=== PATIENT | female | born 1990 | race Native Hawaiian/Other Pacific Islander ===

== ENCOUNTER 2023-12-20 13:50 | Emergency (ER) | payer OTHER, SELFPAY ==
[2023-12-20 13:54] VITALS: BP 125/86; PULSE 92; RESP 18; TEMP 36.9; O2SAT 99; BMI 33.2
--- NOTE | 2023-12-20 13:58 | ED.FEMALEGU ---
HPI - Female Genitourinary General Time Seen by Provider: 13:58 Date Seen: 12/20/23 Chief complaint: Urogenital Problems, Female Stated complaint: Possible yeast infection Time Seen by Provider: 12/20/23 13:52 Source: patient and RN notes reviewed Mode of arrival: ambulatory Limitations: no limitations History of Present Illness HPI Narrative: Gaby is a very pleasant 33-year-old female coming in with concern of vaginal discharge. She has been having or Shaila vaginal discharge. Notes her last menstrual cycle was abnormal, only had her menses 1 day. She has been having pelvic cramping. Denies any urinary symptoms. No fevers or chills. She has been having 0 Shaila vaginal discharge which she thinks may be consistent with vaginitis, she has had vaginitis before. She is with a new sexual partner for the last couple months, they have been using condoms. She is on no other control. She has a history of chlamydia about 5 years ago. She is not aware of this partner having any STIs. She has noted no rashes or lesions in the perineum. Sexual activity: Yes and New Sexual Partners Related Data Previous Rx's Medication Instructions Recorded metronidazole 0.75 % (37.5 mg/5 1 appful vaginal BID 5 days #70 12/20/23 gram) vaginal gel grams Allergies Allergy/AdvReac Type Severity Reaction Status Date / Time No Known Drug Allergies Allergy Verified 12/20/23 13:55 Review of Systems Narrative: As per HPI. PFS PFS Social History Smoking Status: Never smoker Do you use any of these nicotine containing products: None Second hand tobacco smoke exposure: No How often do you have a drink containing alcohol: never AUDIT-C Alcohol total score: 0 Non-prescribed substance use: denies use service: No Exam Const: Vital Signs, click to edit/add: Vital Signs - 24 hr 12/20/23 13:54 Temperature 98.5 F Pulse Rate [Right Pulse Oximeter] 92 Respiratory Rate 18 Blood Pressure [Ri ght Upper Arm] 125/86 Pulse Oximetry 99 Oxygen Delivery Me thod Room Air This very pleasant 33-year-old female seen in exam room 7. She is ambulatory into the ED of her own accord. Abdomen is soft, no rebound or guarding, no organomegaly. She has no inguinal adenopathy. External genitalia normal, see no rashes or lesions. Speculum exam done, vaginal mucosa appears normal with a scant amount of slight blood tinged to yellowish discharge, do not appreciate odor but do have a mask on. Cervix looks a bit friable, some mild pooling of thinner yellowish to slightly bloody fluid in the posterior fornix. Endocervical specimen obtained for GC and chlamydia, vaginitis panel. Bimanual exam reveals no cervical motion tenderness, nontender nonenlarged uterus, no adnexal fullness or tenderness. Documenting provider has reviewed patient's vital signs: yes Course Course ED Course: Patient is in agreement with the swabs collected during her exam. Will also confirm status with urine test. Clinically, exam is benign, do not think that she has any physical stigmata suggestive of PID. Would not recommend any imaging at this time given benign exam other than the vaginal discharge. Do need to confirm her status, await results for the vaginitis panel. Reevaluation(s) Time of Reevaluation #1: 14:48 Reevaluation #1: Have reviewed negative test with patient. She will discharge to home at this time and await a phone call from us once other test results are back. It will likely be await until those test results come back, she would prefer to go home and await a phone call. She understands that we may have to send medicines into the pharmacy, may not be ready until tomorrow if it is later. She is fine with that. Time of Reevaluation #2: 17:50 Reevaluation #2: Called and left a message on patient's cellphone, she did not answer. Have asked her to contact us back here in the ER. Will send in treatment for bacterial vaginosis. 5:53 p.m.: Patient did call back, did explain the bacterial vaginosis and treatment. Questions were answered. Patient was given verbal discharge. She is aware that the prescription was sent to her pharmacy, she will likely have to start it tomorrow which will be fine. Have advised abstinence through this treatment. Vital Signs Vital signs: Initial Vital Signs Temperature 98.5 F 12/20/23 13:54 Temperature Source Temporal Artery Scan 12/20/23 13:54 Pulse Rate 92 12/20/23 13:54 Respiratory Rate 18 12/20/23 13:54 Blood Pressure 125/86 12/20/23 13:54 Blood Pressure Mean 99 12/20/23 13:54 Blood Pressure Position Sitting 12/20/23 13:54 Pulse Oximetry 99 12/20/23 13:54 Oxygen Delivery Method Room Air 12/20/23 13:54 Vital Signs Temperature 98.5 F 12/20/23 13:54 Pulse Rate 92 12/20/23 13:54 Respiratory Rate 18 12/20/23 13:54 Blood Pressure 125/86 12/20/23 13:54 Pulse Oximetry 99 12/20/23 13:54 Oxygen Delivery Method Room Air 12/20/23 13:54 Temperature 98.5 F 12/20/23 13:54 Pulse Rate 92 12/20/23 13:54 Respiratory Rate 18 12/20/23 13:54 Blood Pressure 125/86 12/20/23 13:54 Pulse Oximetry 99 12/20/23 13:54 Oxygen Delivery Method Room Air 12/20/23 13:54 MDM - Female Genitourinary Lab Data Attestation: I reviewed the patient's lab results. Labs: Lab Results 12/20/23 12/20/23 Range/Units 14:18 Unknown Urine HCG, Qual Negative (Negative) Vaginal Bacterial Vaginosis DETECTED A (No Detected) Vaginal Kenna species Not Detected (No Detected) Vag C. glabrata/krusei Not Detected (No Detected) Vag T. vaginalis Not Detected (No Detected) C.trachomatis Ampl DNA Not Detected (No Detected) N.gonorrhoeae Ampl DNA Not Detected (No Detected) Discharge Plan Discharge Clinical Impression: Bacterial vaginosis Patient Disposition: Home, Self-Care Condition: Stable Prescriptions: New metronidazole 0.75 % (37.5mg/5 gram) gel 1 appful vaginal BID 5 Days Qty: 70 0RF Follow Up/Referrals: Provider,Not a Local [Primary Care Provider] - Stand Alone Forms: MyHealth Info Instructions
[2023-12-20 14:29] LABS: Ur HCG Qualitative* Negative (Negative)
[2023-12-20 15:37] LABS: Bacterial Vaginosis* DETECTED (No Detected); Candida glab/krus Not Detected (No Detected); Candida species Not Detected (No Detected); Trichomonas vaginalis Not Detected (No Detected)
[2023-12-20 16:25] LABS: Chlamydia DNA Amplified* Not Detected (No Detected); GC DNA Amplified* Not Detected (No Detected)
== END 2023-12-20 14:51 | disposition home or self-care (01) ==
PROVIDERS: Emergency Provider Family Medicine
DX: N76.0 Acute vaginitis (principal); B96.89 Other specified bacterial agents as the cause of diseases classified elsewhere
CPT/HCPCS: 81025; 81513; 87481; 87491; 87591; 87661; 99283